=== PATIENT | female | born 1975 | race Caucasian/White ===

== ENCOUNTER 2016-06-03 15:18 | Emergency (ER) | payer BC ==
--- NOTE | 2016-06-24 08:06 | ER ---
ADMIT: 06/03/2016 RM/LOC: ER [facility] MR#: [id number] [address] [id number] EVELYN SAM [address] [place] [address] Emergency Room Report SEX: F AGE: 40 : 1975 DATE: 06/03/2016 ADDENDUM: CHIEF COMPLAINT: Low back pain. HISTORY OF PRESENT ILLNESS: This is a 40-year-old, who works for [employer]. She does a lot of lifting and twisting and turning. She does armor specific injury, but for the last 3 days, she has left buttock pain that is very tender right in the SI joint. I will send her home with prednisone for inflammation, told her to continue Motrin and Tylenol for pain, use ice, heat, stretch, activity as tolerated, and follow up if worsen. I did write her a note for [facility] to limit her lifting and turning for the next 2 weeks to see if that will help and again follow up with primary care physician if no improvement. JEVON Goldsmith / Aleksandr Amador MD / patricial JOB #: [id number] CC: Aleksandr Amador MD, Attending Physician
== END 2016-06-03 15:56 | disposition home or self-care (01) ==
LOC: ER 15:18
DX: M54.5 Low back pain (principal); F17.210 Nicotine dependence, cigarettes, uncomplicated